=== PATIENT | female | born 1970 | race African-American/Black ===

== ENCOUNTER 2019-12-06 18:03 | Inpatient (IN) ==
[2019-12-06] MEDS ORDERED: SODIUM CHLORIDE 0.9% 500 ML IV STA (18:42)
[2019-12-06] MEDS ORDERED: AZITHROMYCIN 250 MG TABLET PO STA (18:42)
[2019-12-06] MEDS ORDERED: ACETAMINOPHEN 500 MG TABLET PO STA (18:42)
[2019-12-06 20:17] LABS: Basophils % 0.2 % (0.0-0.8); Hematocrit 38.3 VOL% (35.7-47.0); Hemoglobin 12.1 GM/DL (12.0-16.0); Immature Granulocytes % 0.4 %; Immature Granulocytes Absolute 0.02 #; Lymphocytes # 2.1 10*3/uL (1.4-4.0); Lymphocytes % 41.6 % (21.3-54.2); Mean Corpuscular HGB Conc 31.6 GM/DL (32-36); Mean Corpuscular Volume 86.8 FL (87-102); Monocytes % 6.8 % (1.7-12.7); Platelet Count 149 T/CUMM (130-400); Red Blood Count 4.41 MC/CUMM (3.8-5.5); Red Cell Distribution Width 14.5 % (9.3-17.3)
[2019-12-06 20:33] LABS: Albumin 3.5 G/DL (3.4-5.0); Bilirubin,Total 0.5 MG/DL (0.2-1.0); Calcium 8.3 MG/DL (8.5-10.1); Ferritin 156.3 ng/ml (8-252); Osmolality,Calculated 267.1 MOS/KG (273-304); Total Protein 7.9 G/DL (6.4-8.3)
[2019-12-06 20:50] LABS: Apearance,Urine Slightly Hazy (Clear); Bilirubin,Urine Negative (Negative); Blood, Urine Negative (Negative); Glucose,Urine (UA) Negative (Negative); Ketones,Urine 5 mg/dL (Negative); Mucus,Urine Occasional /LPF (Occasional); Nitrite,Urine Negative (Negative); Protein,Urine 30 MG/DL; RBC,Urine 3 /HPF (0-4); Squamous Epithelial Cell,Urine Few /HPF (0-10); Urine Color Yellow (Yellow); Urine Specific Gravity 1.018 (1.001-1.035); Urine Urobilinogen < 2.0 EU/DL (0.2-1.0); WBC,Urine 3 /HPF (0-6)
[2019-12-06 20:51] LABS: Band Neutrophils 3 % (0-10); Eosinophils 1 % (0-10); Lymphocytes 36 % (20-55); Segmented Neutrophils 56 % (50-85); Total Cells Counted 100
[2019-12-06 20:52] LABS: Platelet Estimate Adequate
[2019-12-06] MEDS ORDERED: DEXTROSE 50% 25 GM/50 ML SYRINGE IV PRN (21:12)
[2019-12-06] MEDS ORDERED: GLUCAGON 1 MG VIAL IM PRN (21:12)
[2019-12-06] MEDS ORDERED: SODIUM CHLORIDE 0.9% 100 ML IV ONE (22:03)
[2019-12-06] MEDS: cefTRIAXone 1,000 MG in SYRINGE 1 EACH IV SCH (22:10)
[2019-12-06] MEDS: ENOXAPARIN 40 MG/0.4 ML SYRINGE SUBCUT SCH (22:10)
[2019-12-07] MEDS ORDERED: ACETAMINOPHEN 325 MG TABLET PO PRN (06:33)
[2019-12-07 07:20] LABS: Basophils % 0.2 % (0.0-0.8); Hematocrit 40.4 VOL% (35.7-47.0); Hemoglobin 12.8 GM/DL (12.0-16.0); Immature Granulocytes % 0.4 %; Immature Granulocytes Absolute 0.02 #; Lymphocytes # 2.2 10*3/uL (1.4-4.0); Lymphocytes % 38.5 % (21.3-54.2); Mean Corpuscular HGB Conc 31.7 GM/DL (32-36); Mean Corpuscular Volume 85.8 FL (87-102); Monocytes % 5.4 % (1.7-12.7); Neutrophils % 55.5 % (38.7-73.9); Platelet Count 159 T/CUMM (130-400); Red Blood Count 4.71 MC/CUMM (3.8-5.5); Red Cell Distribution Width 14.6 % (9.3-17.3); White Blood Count 5.6 T/CUMM (4-12)
[2019-12-07 07:49] LABS: Anisocytosis 1+; Band Neutrophils 21 % (0-10); Lymphocytes 34 % (20-55); Macrocytosis Slight; Platelet Estimate Normal; Segmented Neutrophils 42 % (50-85); Total Cells Counted 100
[2019-12-07] MEDS: HYDROXYCHLOROQUINE 200 MG TABLET PO SCH ×2 (09:01→22:10)
[2019-12-07] MEDS: PANTOPRAZOLE 40 MG TABLET PO SCH (09:01)
[2019-12-07] MEDS: ZINC SULFATE 220 MG CAPSULE PO SCH (09:01)
[2019-12-07 09:03] LABS: Albumin 3.3 G/DL (3.4-5.0); Bilirubin,Total 0.7 MG/DL (0.2-1.0); Calcium 8.3 MG/DL (8.5-10.1); Ferritin 158.5 ng/ml (8-252); Osmolality,Calculated 271.8 MOS/KG (273-304); Total Protein 7.9 G/DL (6.4-8.3)
[2019-12-07] MEDS ORDERED: AZITHROMYCIN 250 MG TABLET PO SCH (21:00)
[2019-12-07] MEDS: ENOXAPARIN 40 MG/0.4 ML SYRINGE SUBCUT SCH (22:11)
[2019-12-07] MEDS: cefTRIAXone 1,000 MG in SYRINGE 1 EACH IV SCH (22:12)
[2019-12-08 07:31] LABS: Basophils % 0.3 % (0.0-0.8); Hematocrit 38.1 VOL% (35.7-47.0); Hemoglobin 12.1 GM/DL (12.0-16.0); Immature Granulocytes % 0.3 %; Immature Granulocytes Absolute 0.02 #; Lymphocytes # 2.5 10*3/uL (1.4-4.0); Lymphocytes % 34.3 % (21.3-54.2); Mean Corpuscular HGB Conc 31.8 GM/DL (32-36); Mean Corpuscular Volume 85.6 FL (87-102); Mean Platelet Volume 11.8 FL (9.6-12.0); Monocytes % 5.3 % (1.7-12.7); Neutrophils % 59.8 % (38.7-73.9); Platelet Count 156 T/CUMM (130-400); Red Blood Count 4.45 MC/CUMM (3.8-5.5); Red Cell Distribution Width 14.5 % (9.3-17.3); White Blood Count 7.2 T/CUMM (4-12)
[2019-12-08 07:40] LABS: Calcium 8.5 MG/DL (8.5-10.1); Osmolality,Calculated 266.2 MOS/KG (273-304)
[2019-12-08 08:06] LABS: Band Neutrophils 26 % (0-10); Lymphocytes 33 % (20-55); Platelet Estimate Normal; Segmented Neutrophils 36 % (50-85); Total Cells Counted 100
[2019-12-08 08:07] LABS: Anisocytosis 1+
[2019-12-08] MEDS: PANTOPRAZOLE 40 MG TABLET PO SCH (09:04)
[2019-12-08] MEDS: HYDROXYCHLOROQUINE 200 MG TABLET PO SCH ×2 (09:04→21:00)
[2019-12-08] MEDS: ENOXAPARIN 40 MG/0.4 ML SYRINGE SUBCUT SCH (21:00)
[2019-12-08] MEDS: cefTRIAXone 1,000 MG in SYRINGE 1 EACH IV SCH (21:00)
[2019-12-09 06:33] LABS: Basophils % 0.1 % (0.0-0.8); Hematocrit 37.5 VOL% (35.7-47.0); Hemoglobin 11.6 GM/DL (12.0-16.0); Immature Granulocytes % 0.4 %; Immature Granulocytes Absolute 0.03 #; Lymphocytes # 2.5 10*3/uL (1.4-4.0); Lymphocytes % 35.6 % (21.3-54.2); Mean Corpuscular HGB Conc 30.9 GM/DL (32-36); Mean Corpuscular Volume 87.2 FL (87-102); Mean Platelet Volume 11.3 FL (9.6-12.0); Monocytes % 4.5 % (1.7-12.7); Neutrophils % 59.4 % (38.7-73.9); Platelet Count 163 T/CUMM (130-400); Red Cell Distribution Width 14.4 % (9.3-17.3); White Blood Count 7.1 T/CUMM (4-12)
[2019-12-09 07:19] LABS: Atypical Lymphocytes Few; Band Neutrophils 10 % (0-10); Hypochromasia 2+; Lymphocytes 34 % (20-55); Microcytosis 2+; Platelet Estimate Adequate; Polychromasia Slight; Segmented Neutrophils 52 % (50-85); Total Cells Counted 100
[2019-12-09 08:22] LABS: Calcium 8.5 MG/DL (8.5-10.1)
[2019-12-09] MEDS: PANTOPRAZOLE 40 MG TABLET PO SCH (09:20)
[2019-12-09] MEDS: ZINC SULFATE 220 MG CAPSULE PO SCH (09:20)
[2019-12-09] MEDS: HYDROXYCHLOROQUINE 200 MG TABLET PO SCH ×2 (09:20→20:36)
[2019-12-09] MEDS: ENOXAPARIN 40 MG/0.4 ML SYRINGE SUBCUT SCH (20:36)
[2019-12-09] MEDS: cefTRIAXone 1,000 MG in SYRINGE 1 EACH IV SCH (20:45)
[2019-12-10 06:38] LABS: Basophils % 0.2 % (0.0-0.8); Eosinophils % 0.2 % (0.00-10.9); Hematocrit 38.6 VOL% (35.7-47.0); Hemoglobin 11.8 GM/DL (12.0-16.0); Immature Granulocytes % 0.5 %; Immature Granulocytes Absolute 0.03 #; Lymphocytes # 2.3 10*3/uL (1.4-4.0); Lymphocytes % 39.9 % (21.3-54.2); Mean Corpuscular HGB Conc 30.6 GM/DL (32-36); Mean Corpuscular Volume 88.1 FL (87-102); Monocytes % 6.8 % (1.7-12.7); Neutrophils % 52.4 % (38.7-73.9); Platelet Count 168 T/CUMM (130-400); Red Blood Count 4.38 MC/CUMM (3.8-5.5); Red Cell Distribution Width 14.5 % (9.3-17.3); White Blood Count 5.7 T/CUMM (4-12)
[2019-12-10 06:53] LABS: Calcium 8.8 MG/DL (8.5-10.1); Osmolality,Calculated 270.8 MOS/KG (273-304)
[2019-12-10 07:49] LABS: Platelet Estimate Normal
[2019-12-10 07:50] LABS: Anisocytosis Slight
[2019-12-10] MEDS: PANTOPRAZOLE 40 MG TABLET PO SCH (09:25)
[2019-12-10] MEDS: HYDROXYCHLOROQUINE 200 MG TABLET PO SCH ×2 (09:25→21:31)
[2019-12-10] MEDS: cefTRIAXone 1,000 MG in SYRINGE 1 EACH IV SCH (21:30)
[2019-12-10] MEDS: ENOXAPARIN 40 MG/0.4 ML SYRINGE SUBCUT SCH (21:31)
[2019-12-11] MEDS: PANTOPRAZOLE 40 MG TABLET PO SCH (10:54)
[2019-12-11] MEDS: ZINC SULFATE 220 MG CAPSULE PO SCH (10:54)
[2019-12-11] MEDS: HYDROXYCHLOROQUINE 200 MG TABLET PO SCH ×2 (10:54→20:25)
[2019-12-11] MEDS: cefTRIAXone 1,000 MG in SYRINGE 1 EACH IV SCH ×2 (20:25→23:29)
[2019-12-11] MEDS: ENOXAPARIN 40 MG/0.4 ML SYRINGE SUBCUT SCH (20:25)
[2019-12-12] MEDS: PANTOPRAZOLE 40 MG TABLET PO SCH (08:20)
[2019-12-12] MEDS: ENOXAPARIN 40 MG/0.4 ML SYRINGE SUBCUT SCH (21:00)
[2019-12-12] MEDS: cefTRIAXone 1,000 MG in SYRINGE 1 EACH IV SCH (21:00)
[2019-12-13 05:06] LABS: Basophils % 0.3 % (0.0-0.8); Eosinophils # 0.1 10*3/uL (0.0-0.87); Hematocrit 39.7 VOL% (35.7-47.0); Hemoglobin 12.5 GM/DL (12.0-16.0); Immature Granulocytes % 0.6 %; Immature Granulocytes Absolute 0.04 #; Lymphocytes # 2.2 10*3/uL (1.4-4.0); Lymphocytes % 32.4 % (21.3-54.2); Mean Corpuscular HGB Conc 31.5 GM/DL (32-36); Mean Corpuscular Volume 84.8 FL (87-102); Mean Platelet Volume 10.8 FL (9.6-12.0); Monocytes % 7.7 % (1.7-12.7); Platelet Count 226 T/CUMM (130-400); Red Blood Count 4.68 MC/CUMM (3.8-5.5); Red Cell Distribution Width 13.9 % (9.3-17.3); White Blood Count 6.8 T/CUMM (4-12)
[2019-12-13 05:25] LABS: Calcium 9.2 MG/DL (8.5-10.1); Osmolality,Calculated 272.8 MOS/KG (273-304)
[2019-12-13 05:30] LABS: Atypical Lymphocytes Few; Hypochromasia 1+; Lymphocytes 32 % (20-55); Microcytosis Slight; Ovalocytes Slight; Segmented Neutrophils 62 % (50-85); Total Cells Counted 100
[2019-12-13 05:31] LABS: Platelet Estimate Adequate
[2019-12-13] MEDS: PANTOPRAZOLE 40 MG TABLET PO SCH (08:33)
[2019-12-13 11:36] VITALS: BP 110/56
== END 2019-12-13 15:40 | disposition home or self-care (01) | DRG 177 ==
LOC: N.ED 18:03 → N.EDINP 21:12 → SUATTDRO 21:12 → N.2E 22:53
PROVIDERS: ADMIT Internal Medicine; ATTEND Internal Medicine Cardiovascular Disease